=== PATIENT | male | born 1985 | race African-American/Black ===

== ENCOUNTER 2021-06-09 08:08 | Emergency (ER) | payer OTHER ==
[~2021-06-09] VITALS: Ht 177.8 cm; Wt 86.2 kg
--- NOTE | 2021-06-09 08:19 | NUR ---
PT CAME TO ER C/O BLOOD IN URINE SINCE THIS MORNING. ADMITS MILD TESTICULAR DISCOMFORT. DENIES FLANK PAIN, N/V, FEVER. DENIES HX OF KIDNEY STONES. AAOX4, BREATHING EVEN AND UNLABORED, SKIN WARM AND DRY, ATTACHED TO MONITOR.
--- NOTE | 2021-06-09 08:22 | NUR ---
URINE SAMPLE OBTAINED AND SENT TO LAB
[2021-06-09 09:01] LABS: COLOR,URINE ORANGE (YELLOW)
--- NOTE | 2021-06-09 09:14 | NUR ---
ULTRASOUND BEING DONE AT BEDSIDE
[2021-06-09 09:29] LABS: BACTERIA,URINE Few /HPF (None Seen); SQUAMOUS EPITHELIAL CELL,UR Rare /HPF (None Seen)
[2021-06-09 09:30] LABS: HYALINE CASTS, URINE Moderate /LPF (None Seen)
[2021-06-09] MEDS ORDERED: CEPH500C2 PO (09:53)
--- NOTE | 2021-06-09 10:39 | NUR ---
Patient discharged to home in stable condition. Written and verbal after care instructions given. Patient verbalizes understanding of instruction.
[2021-06-09 10:40] VITALS: BP 144/85
== END 2021-06-09 10:37 | disposition home or self-care (01) ==
LOC: ER 08:15
DX: N39.0 Urinary tract infection, site not specified (principal); R30.0 Dysuria; R31.9 Hematuria, unspecified; N50.82 Scrotal pain
CPT/HCPCS: 76870-TC; 81001